=== PATIENT | female | born 1995 | race Two or more races ===

== ENCOUNTER 2019-04-29 20:07 | Emergency (ER) | payer MEDICAID ==
[2019-04-29] MEDS ORDERED: IBUPROFEN 800 MG TAB PO ONE (21:15)
[2019-04-29 21:20] LABS: Basophils # (auto) 0 uL; Basophils % (auto) 0.2 % (0.0-2.0); Eosinophils # (auto) 0 uL; Hemoglobin 12.8 g/dL (12.2-16.2); Lymphocytes # (auto) 2.9 uL
[2019-04-29 21:22] LABS: Hematocrit 39.3 % (36.0-46.0); Lymphocytes % (auto) 17.2 % (10.0-50.0); Mean Corpuscular Hemoglobin 26.1 pg (28.0-32.0); Mean Corpuscular Hgb Conc. 32.6 g/dL (32.0-36.0); Mean Corpuscular Volume 80.2 fL (80.0-100.0); Monocytes # (auto) 1.9 uL; Monocytes % (auto) 11.7 % (0.0-12.0); Neutrophils # (auto) 11.8 uL; Neutrophils % (auto) 70.9 % (37.0-80.0); Platelet Count (auto) 410 10^3/uL (140-450); Red Cell Distribution Width 12.9 % (11.8-14.3); White Blood Cell 16.6 10^3/uL (4.4-10.8)
[2019-04-29 21:35] LABS: Albumin 2.7 g/dL (3.4-5.0); Calcium 8.5 mg/dL (8.5-10.1)
[2019-04-29 21:38] LABS: Bilirubin, Total 0.4 mg/dL (0.2-1.0); Total Protein 8.5 g/dL (6.4-8.2)
[2019-04-29 21:56] LABS: BUN/Creatinine Ratio 12.6
== END 2019-04-29 23:51 | disposition left against medical advice (07) ==
LOC: ER 20:07
DX: R10.9 Unspecified abdominal pain (principal); Z53.21 Procedure and treatment not carried out due to patient leaving prior to being seen by health care provider
CPT/HCPCS: 36415; 74176; 80053; 82010; 85025

== ENCOUNTER 2023-09-29 11:41 | Emergency (ER) | payer MEDICAID ==
[~2023-09-29] VITALS: Ht 170.2 cm; Wt 100.9 kg
[2023-09-29 12:43] LABS: Urine Bacteria FEW /hpf (None Seen); Urine Blood 1+ /uL (Negative); Urine Clarity Clear (Clear); Urine Color Light-Yellow (Yellow); Urine Protein, UAD Negative (Negative); Urine Specific Gravity 1.032 (1.001-1.035); Urine Urobilinogen Normal (Negative); Urine WBC 1 /hpf (0 - 5); Urine pH 5.5 (5.0-9.0)
[2023-09-29 14:45] LABS: Basophils # (auto) 0 10 ^3/uL (0-0.2); Basophils % (auto) 0.3 % (0.0-2.0); Eosinophils # (auto) 0.1 10 ^3/uL (0-0.8); Eosinophils % (auto) 1.6 % (0.0-7.0); Hematocrit 38.8 % (36.0-46.0); Hemoglobin 12.7 g/dL (12.2-16.2); Lymphocytes # (auto) 2.6 10 ^3/uL (0.4-5.4); Lymphocytes % (auto) 32.2 % (10.0-50.0); Mean Corpuscular Hemoglobin 26.6 pg (28.0-32.0); Mean Corpuscular Hgb Conc. 32.8 g/dL (32.0-36.0); Mean Corpuscular Volume 81.3 fL (80.0-100.0); Monocytes # (auto) 0.4 10 ^3/uL (0-1.3); Monocytes % (auto) 5.4 % (0.0-12.0); Neutrophils # (auto) 4.9 10 ^3/uL (1.6-8.6); Neutrophils % (auto) 60.5 % (37.0-80.0); Nucleated Red Blood Cells % 0.1 %; Red Blood Cells 4.78 10^6/uL (4.0-5.20); Red Cell Distribution Width 13.4 % (11.8-14.3); White Blood Cell 8.1 10^3/uL (4.4-10.8)
[2023-09-29 14:54] LABS: Alanine Aminotransferase 23 U/L (7-40); Alkaline Phosphatase 222 U/L (46-116); Anion Gap 5 (5-15); Aspartate Aminotransferase < 8 U/L (13-40); BUN/Creatinine Ratio 10.1 (10.0-20.0); Blood Urea Nitrogen 10 mg/dL (9-23); Calcium 9.9 mg/dL (8.5-10.1); Carbon Dioxide 27 mmol/L (20-30); Chloride 97 mmol/L (98-107); Potassium 4.7 mmol/L (3.5-5.1); Sodium 129 mmol/L (136-145)
[2023-09-29 14:55] LABS: Albumin 4.3 g/dL (3.2-4.8); Bilirubin, Total 0.2 mg/dL (0.2-1.0); Total Protein 7.8 g/dL (5.7-8.2)
[2023-09-29 15:19] LABS: Glucose 524 mg/dL (74-106)
[2023-09-29] MEDS ORDERED: NITR-87 PO (16:11)
[2023-09-29] MEDS: cefTRIAXone SOD 1,000 MG VL IM ONE (16:21)
[2023-09-29] MEDS: KETOROLAC TROMETH 30 MG/ML 1ML VIAL IM ONE (16:21)
[2023-09-29 16:25] VITALS: BP 119/74; PULSE 68; RESP 17; TEMP 98.3; O2SAT 97
[2023-09-29] MEDS: InsuLIN REG 1unit/0.01ml Soln (100units/ml) SC ONE (16:32)
== END 2023-09-29 16:40 | disposition home or self-care (01) ==
LOC: ER 11:41
DX: E11.65 Type 2 diabetes mellitus with hyperglycemia (principal); N39.0 Urinary tract infection, site not specified
CPT/HCPCS: 36415; 80053; 81001; 82962; 85025; 96372; 99284; J0696; J1815; J1885